=== PATIENT | male | born 1965 | race Caucasian/White ===

== ENCOUNTER 2018-02-06 13:37 | Emergency (ER) | payer BC ==
[2018-02-06 13:46] VITALS: BP 153/103
--- NOTE | 2018-02-06 14:17 | RAD ---
INDICATION: Right knee pain COMPARISON: None TECHNIQUE: AP, lateral, tunnel, and sunrise views were obtained. FINDINGS: The bony structures, joint spaces, and soft tissues are normal for age. IMPRESSION: NEGATIVE EXAMINATION.
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
[2018-02-06] MEDS ORDERED: Ibuprofen TAB* 600 MG PO ONE (14:25)
== END 2018-02-06 14:40 | disposition home or self-care (01) ==
LOC: UCEAST 13:37
DX: S89.91XA Unspecified injury of right lower leg, initial encounter (principal); V17.0XXA Pedal cycle driver injured in collision with fixed or stationary object in nontraffic accident, initial encounter; Y93.55 Activity, bike riding; Y92.9 Unspecified place or not applicable; R03.0 Elevated blood-pressure reading, without diagnosis of hypertension
CPT/HCPCS: 99212; A9270-GY; G0463

== ENCOUNTER 2018-02-08 18:46 | Emergency (ER) | payer BC ==
[2018-02-08 20:02] VITALS: BP 153/87
[2018-02-08] MEDS ORDERED: cefTRIAXone VIAL(*) 1,000 MG VIAL IM ONE ×2 (20:28→20:33)
[2018-02-08] MEDS ORDERED: Tetan/Diph/Pertus SYR(Tdap)* 0.5 ML SYR(BOOSTRIX) use SYR IM ONE (20:40)
--- NOTE | 2018-02-08 20:40 | UC ---
Knee Pain HPI - HPI Summary HPI Summary: Pt c/o worsening right knee pain, and swelling after falling twice last week on right knee. Pt was seen at [facility] and had Xrays of right knee that were negative for fracture. Pt reports he had laceration that has since healed but site of laceration is very tender, pt states that he stands at work and and today he noticed that his right knee and lower extremity has become increasingly erythematous, swollen and tender. - History of Current Complaint Chief Complaint: UCLowerExtremity Stated Complaint: R LEG INJURY Time Seen by Provider: 02/08/18 20:16 Hx Obtained From: Patient Onset/Duration: Gradual Onset, Lasting Days, Worse Since - onset Severity Initially: Mild Severity Currently: Moderate Pain Intensity: 4 Character: Dull, Aching, Stiffness Aggravating Factor(s): Weight Bearing, Prolonged Standing Alleviating Factor(s): Nothing Associated Signs And Symptoms: Positive: Swelling, Redness Able to Bear Weight: Yes - Risk Factors Septic Arthritis Risk Factor: Negative Gout Risk Factor: Age ^ 41, Male - Allergies/Home Medications Allergies/Adverse Reactions: Allergies Allergy/AdvReac Type Severity Reaction Status Date / Time No Known Allergies Allergy Verified 02/08/18 19:52 PMH/Surg Hx/FS Hx/Imm Hx Previously Healthy: Yes - Surgical History Surgical History: Yes Surgery Procedure, Year, and Place: LEG INJURY RECONSTRUCTION WITH TITANIUM RODS. - Family History Known Family History: Positive: Cardiac Disease - Social History Occupation: Employed Full-time Lives: With Family Alcohol Use: Rare Substance Use Type: None Smoking Status (MU): Never Smoked Tobacco Have You Smoked in the Last Year: No Review of Systems Constitutional: Negative Skin: Other - erythema Eyes: Negative ENT: Negative Respiratory: Negative Cardiovascular: Negative Gastrointestinal: Negative Genitourinary: Negative Motor: Decreased ROM - right knee Neurovascular: Negative Musculoskeletal: Arthralgia, Edema - right lower extremity, Myalgia - right knee Neurological: Negative Psychological: Negative Is Patient Immunocompromised?: No All Other Systems Reviewed And Are Negative: Yes Physical Exam Triage Information Reviewed: Yes Appearance: Well-Appearing Vital Signs: Initial Vital Signs Temp 99.9 F 02/08/18 19:53 Pulse 92 02/08/18 19:53 Resp 18 02/08/18 19:53 BP 153/87 02/08/18 19:53 Pulse Ox 98 02/08/18 19:53 Vital Signs Reviewed: Yes Eye Exam: Normal ENT Exam: Normal Dental Exam: Normal Neck exam: Normal Respiratory: Positive: No respiratory distress Musculoskeletal: Positive: Edema @ - right knee generalized edema, erythema, erythema extends, ~ 3-4 cm proximal and distal to knee joint. erythematous edges were marked with surgi marker. 1 + pitting edema to right LE. Neurological Exam: Normal Knee Pain Course/Dx - Differential Dx/Diagnosis Differential Diagnosis/HQI/PQRI: Cellulitis, Infection Provider Diagnoses: infected knee. cellulitis Discharge - Sign-Out/Discharge Documenting (check all that apply): Discharge/Admit/Transfer - Discharge Plan Condition: Stable Disposition: HOME Prescriptions: Cephalexin CAP* [Keflex 500 CAP*] 500 mg PO Q8H #30 cap Patient Education Materials: Cellulitis (ED), Swollen Knee Joint (ED), Knee Pain (ED) Referrals: Maged Sr MD [Primary Care Provider] - If Needed Additional Instructions: Please follow up with your PCP or return to clinic as needed. If your symptoms do n ot improve, please seek care at the closest emergency department. - Billing Disposition and Condition Condition: STABLE Disposition: Home
== END 2018-02-08 21:09 | disposition home or self-care (01) ==
LOC: UCCORT 18:46
DX: L03.115 Cellulitis of right lower limb (principal); M00.9 Pyogenic arthritis, unspecified; W18.39XA Other fall on same level, initial encounter; Y92.9 Unspecified place or not applicable
CPT/HCPCS: 90471; 90715; 96372; 99212; G0463; J0696